=== PATIENT | female | born 1950 | race Caucasian/White ===

== ENCOUNTER 2024-07-27 13:00 | Outpatient (RCR) | payer BC | END 2024-07-30 | LOC: PT 13:00 | PROVIDERS: ATTEND Student in an Organized Health Care Education/Training Program | DX: M54.12 Radiculopathy, cervical region (principal); M54.16 Radiculopathy, lumbar region; M62.81 Muscle weakness (generalized); M54.50 Low back pain, unspecified ==

== ENCOUNTER 2024-08-28 12:57 | Outpatient (RCR) | payer BC | END 2024-08-29 | LOC: PT 12:57 | PROVIDERS: ATTEND Student in an Organized Health Care Education/Training Program | DX: M54.16 Radiculopathy, lumbar region (principal); M54.12 Radiculopathy, cervical region; M62.81 Muscle weakness (generalized); M54.50 Low back pain, unspecified ==